=== PATIENT | male | born 1975 | race Caucasian/White ===

== ENCOUNTER 2016-12-10 22:00 | Emergency (ER) | payer OTHER ==
--- NOTE | ~2016-12-10 | EKG ---
PATIENT: EPI YANES UNIT #: [id number] Ventricular Rate: 66 BPM Atrial Rate: 66 BPM P-R Interval: 188 ms QRS Duration: 70 ms Q-T Interval: 360 ms QTC Calculation(Bezet): 377 ms P Jupiter: 44 degrees Calculated R Jupiter: -3 degrees Calculated T Jupiter: 20 degrees Diagnosis Line: Normal sinus rhythm Diagnosis Line: Normal ECG Diagnosis Line: No previous ECGs available Diagnosis Line: Confirmed by ARTIE FORTE MD ([id number]) on 12/11/2016 Diagnosis Line: 6:03:59 PM INTERPRETING MD: REANNA MICHEL
[~2016-12-10 22:00] MED LIST: BENADRYL25 M3 PO; PREDNISONE PO
[2016-12-10] MEDS ORDERED: MOBIC (23:12)
[2016-12-10] MEDS ORDERED: PAXIL (23:13)
[2016-12-11 01:24] LABS: BASOPHIL# 0.1 X10e3 (0-0.3); BASOPHIL% 1.1 % (0-2.5); EOSINOPHIL# 0.2 X10e3 (0-0.7); EOSINOPHIL% 2.7 % (0.0-7.0); HEMATOCRIT 43.9 % (38.0-50.0); HEMOGLOBIN 15.2 gm/dL (13.0-16.0); LYMPHOCYTE# 2.4 X10e3 (1.0-3.5); MEAN CELL VOLUME 90.9 FL (83-96); MEAN CORPUSCULAR HEMOGLOBIN 31.5 PG (28-34); MEAN CORPUSCULAR HGB CONC 34.7 g/dL (30-36); MEAN PLATELET VOLUME 8.5 FL (6.5-11.5); MONOCYTE# 0.5 X10e3 (0-1.0); MONOCYTE% 6.8 % (3.0-12.0); NEUTROPHIL% 56.4 % (40-75); PLATELET COUNT 202 X10e3 (140-420); RED BLOOD COUNT 4.83 X10e (3.90-5.60); RED CELL DISTRIBUTION WIDTH 13.7 % (11.0-15.5); WHITE BLOOD COUNT 7.1 X10e3 (4.0-10.5)
[2016-12-11 01:28] LABS: DIFF IND NO
[2016-12-11 01:40] LABS: POC - CKMB <1.0 ng/mL (0.0-7.9); POC - MYOGLOBIN 53.1 ng/mL (0.0-169.0); POC - TROPONIN <0.05 ng/mL (<=0.05)
[2016-12-11 01:41] LABS: BLOOD UREA NITROGEN 18 mg/dL (9-23); CALCIUM SERUM 8.8 mg/dL (8.4-10.2); CARBON DIOXIDE 24 mmol/L (22-31); CHLORIDE 105 mmol/L (100-111); CREATININE SERUM 0.9 mg/dL (0.6-1.4); GLOM FILT RATE Estimated ABOVE60 mL/min (>60); GLUCOSE FASTING 96 mg/dL (70-110); POTASSIUM 3.8 mmol/L (3.5-5.1); SODIUM 135 mmol/L (135-145)
== END 2016-12-11 02:26 | disposition home or self-care (01) ==
LOC: SED 22:00
PROVIDERS: Emergency Medicine
DX: G56.01 Carpal tunnel syndrome, right upper limb (principal); R20.9 Unspecified disturbances of skin sensation; F17.200 Nicotine dependence, unspecified, uncomplicated
CPT/HCPCS: 29125; 36415; 80048; 82553; 83874; 84484; 85025; 93005; 99283